=== PATIENT | male | born 1930 | race Caucasian/White ===

== ENCOUNTER 2019-11-08 10:35 | Inpatient (IN) | payer MEDICARE, MEDICAID ==
[~2019-11-08] VITALS: Ht 188 cm; Wt 79.4 kg
--- NOTE | 2019-11-08 10:43 | NUR ---
PT BIBPA FROM SNF C/O AGGRESSIVE BEHAVIOR TOWARDS THE STAFF, PT IS AAOX2, NOT IN RESPIRATORY DISTRESS, HOOKED TO MONITOR, KEPT RESTED AND COMFORTABLE, WILL CONTINUE TO MONITOR.
--- NOTE | 2019-11-08 10:50 | NUR ---
PT SEEN AND EXAMINED BY
--- NOTE | 2019-11-08 11:00 | NUR ---
ER PHLEB AT BEDSIDE FOR BLOOD DRAW.
[2019-11-08] MEDS ORDERED: GABA-532 PO (11:10)
[2019-11-08] MEDS ORDERED: DONE10TA11 PO (11:10)
[2019-11-08] MEDS ORDERED: ACET-868 PO (11:10)
[2019-11-08] MEDS ORDERED: MAGN400O6 PO (11:10)
[2019-11-08] MEDS ORDERED: PANT40TA2 PO (11:10)
[2019-11-08] MEDS ORDERED: TAMS-12 PO (11:10)
[2019-11-08] MEDS ORDERED: DIVA125C2 PO (11:10)
[2019-11-08] MEDS ORDERED: ASPI-1152 PO (11:10)
[2019-11-08] MEDS ORDERED: FERR325T23 PO (11:10)
[2019-11-08] MEDS ORDERED: BISA10SU11 RC (11:10)
[2019-11-08] MEDS ORDERED: QUET25TA PO (11:10)
[2019-11-08] MEDS ORDERED: NA P133E RC (11:10)
[2019-11-08 11:31] LABS: BASOPHILS % (AUTO) 0.5 % (0.0-2.0); EOSINOPHILS % (AUTO) 0.7 % (0.0-6.0); HEMATOCRIT 41 % (39-51); HEMOGLOBIN 13.7 g/dL (13.5-17.5); LYMPHOCYTES # (AUTO) 0.8 /CMM (0.8-4.8); LYMPHOCYTES % (AUTO) 9.7 % (20.0-44.0); MEAN CORPUSCULAR HGB CONC 33 g/dl (31.0-36.0); MEAN CORPUSCULAR VOLUME 96 fL (80-96); MONOCYTES # (AUTO) 1.3 /CMM (0.1-1.30); MONOCYTES % (AUTO) 15.9 % (2.0-12.0); NEUTROPHILS # (AUTO) 6.2 /CMM (1.8-8.9); NEUTROPHILS % (AUTO) 73.2 % (43.0-81.0); PLATELET COUNT (AUTO) 238 /CMM (150-450); RED BLOOD CELL COUNT(AUTO) 4.32 MIL/uL (4.5-6.0); WHITE BLOOD COUNT (AUTO) 8.5 K/uL (4.3-11.0)
--- NOTE | 2019-11-08 11:35 | NUR ---
URINAL GIVEN BUT UNABLE TO PROVIDE URINE SPECIMEN THIS TIME.
[2019-11-08 11:40] LABS: LYMPHOCYTES % (MANUAL) 11 % (16-48); MONOCYTES % (MANUAL) 14 % (0-11.0); NEUTROPHILS % (MANUAL) 75 (42-76)
[2019-11-08 11:46] LABS: ALANINE AMINOTRANSFERASE 21 U/L (12-78); ALBUMIN 3.1 g/dL (3.4-5.0); ALCOHOL, BLOOD < 3 mg/dL (0-0); ALKALINE PHOSPHATASE 75 U/L (46-116); ASPARTATE AMINOTRANSFERASE 14 U/L (15-37); BILIRUBIN,DIRECT 0.1 mg/dL (0.0-0.2); BILIRUBIN,TOTAL 0.3 mg/dL (0.2-1.0); CARBON DIOXIDE 28 mmol/L (21-32); CHLORIDE 102 mmol/L (98-107); CREATININE 1.1 mg/dL (0.6-1.3); GLUCOSE 113 mg/dL (74-106); POTASSIUM 3.8 mmol/L (3.5-5.1); SODIUM SERUM 133 mmol/L (136-145); TOTAL PROTEIN, SERUM 7.3 g/dL (6.4-8.2); UREA NITROGEN, BLOOD 33 mg/dL (7-18)
--- NOTE | 2019-11-08 11:47 | NUR ---
URINE SPECIMEN COLLECTED AND SENT TO LAB.
[2019-11-08 11:52] LABS: ACETAMINOPHEN 0 ug/ml (10-30); SALICYLATE 1.4 mg/dL (2.8-20.0)
[2019-11-08 11:54] LABS: APPEARANCE,URINE Clear (CLEAR); BILIRUBIN,URINE Negative (NEGATIVE); BLOOD, URINE Moderate Ery/uL (NEGATIVE); COLOR,URINE Yellow (YELLOW); KETONES,URINE Trace (NEGATIVE); LEUKOCYTE ESTERASE ,URINE Small (NEGATIVE); NITRITE, URINE Negative (NEGATIVE); PH,URINE 8.5 (5.0-8.0); PROTEIN,URINE >=300 mg/dl (NEGATIVE); UGLUCOSE Negative (NEGATIVE); UROBILINOGEN,URINE 0.2 EU/dL (0.2)
--- NOTE | 2019-11-08 12:00 | NUR ---
CALLED PERMIT TECHNICIAN ALEXANDRE BORDEN 1 HR
[2019-11-08 12:04] LABS: THYROID STIMULATING HORMONE 3.573 uIU/mL (0.358-3.74)
[2019-11-08 12:06] LABS: BACTERIA,URINE Many /HPF (None Seen); SQUAMOUS EPITHELIAL CELL,UR Few /HPF (None Seen); TRIPLE PHOSPHATE CRYSTAL,UR Few /HPF (None Seen); WBC,URINE TOO NUMEROUS TO COUN /HPF (0-3)
--- NOTE | 2019-11-08 12:35 | NUR ---
GOT GPS BED 114-A
--- NOTE | 2019-11-08 12:52 | NUR ---
SUHA DEL VALLE CRISISTEAM AT BEDSIDE FOR EVAL.
[2019-11-08] MEDS ORDERED: LEVOFLOXACIN 750 MG /D5W 150ML PIGGYBACK IV ONE (13:30)
[2019-11-08] MEDS ORDERED: ASPIRIN 81 MG TAB.CHEW PO ONE (13:30)
--- NOTE | 2019-11-08 13:41 | NUR ---
IV LINE ESTABLISHED.
[2019-11-08] MEDS ORDERED: LEVOFLOXACIN 750 MG /D5W 150ML 150 ML IV ONE (13:43)
[2019-11-08] MEDS ORDERED: ASPIRIN 81 MG TAB.CHEW ONE (13:43)
[2019-11-08] MEDS ORDERED: ACETAMINOPHEN 325 MG TABLET PO PRN ×2 (14:30)
[2019-11-08] MEDS ORDERED: ONDANSETRON HCL/PF 4 MG/2 ML VIAL IVP PRN (14:30)
[2019-11-08] MEDS ORDERED: Z GUARD REMEDY 2 OZ OINT TP PRN (14:30)
[2019-11-08] MEDS ORDERED: MAGNESIUM HYDROXIDE 30 ML UDC PO PRN ×2 (14:30)
[2019-11-08] MEDS ORDERED: MAG HYDROX/AL HYDROX/SIMETH 30 ML UDC PO PRN (14:30)
[2019-11-08] MEDS ORDERED: BISACODYL SUPP (10 MG) 10 MG/SUPP.RECT SUPP.RECT RC PRN (14:30)
[2019-11-08] MEDS ORDERED: NA PHOS,M-B/NA PHOS,DI-BA 1 EA ENEMA RC PRN (14:30)
--- NOTE | 2019-11-08 15:09 | NUR ---
REPORT GIVEN TO IVON MIRZA FOR POLA, WITH ONGOING ANTIBIOTIC IV
--- NOTE | 2019-11-08 15:30 | NUR ---
COUNTRY MANAGER NOTES RECEIVED PATIENT FROM ER VIA JUAN RAMON. PATIENT WITH SITTER. PATIENT PLACED IN ROOM ORIENTED TO ROOM. CALL LIGHT WITHIN REACH. PERIPHERAL IV INTACT PATENT. PATIENT PLACED ON TELE MONITORING READING A-FIB. PATIENT COOPERATIVE BUT ANXIOUS WHEN ASKED QUESTIONS. PATIENTS SKIN APPEARS INTACT. PATIENT REFUSED FULL SKIN ASSESSMENT. WILL CONTINUE TO MONITOR.
[2019-11-08] MEDS: GABAPENTIN 100 MG CAPSULE PO SCH (16:13)
--- NOTE | 2019-11-08 19:00 | NUR ---
BOX SHOOK PATCHER NOTES PATIENT IN BED RESTING NOS SOB OR ACUTE DISTRESS NOTED. NO CHANGES NOTED DURING SHIFT. PATIENT DOES NOT COMPLAIN OF ANY PAIN. ALL DUE MEDICATIONS ADMINISTERED. ALL NEEDS MET. WILL ENDORSE CARE TO PM SHIFT.
--- NOTE | 2019-11-08 19:15 | NUR ---
TELE/RN NOTES RECEIVED PT. LYING IN BED. PT. IS AWAKE, ALERT AND ORIENTED X2. BREATHING EVEN AND UNLABORED ON ROOM AIR. NO SOB, RESPIRATORY DISTRESS OR COMPLAINTS OF PAIN NOTED AT THIS TIME. PT. WITH EXTERNAL RN OBSERVATION PRESENT AND INTACT. CURRENT RHYTHM = AFIB HR 86. PT. WITH RIGHT WRIST 20 GAUGE IV SALINE LOCK PRESENT, PATENT AND INTACT. PT. WITH 1:1 SITTER PRESENT AT BEDSIDE. BED LOCKED AND IN LOWEST POSITION, SIDE RAILS UP X2, BED ALARM ON, CALL LIGHT WITHIN REACH, WILL CONTINUE TO MONITOR.
[2019-11-08 20:00] VITALS: BP 111/71
[2019-11-08] MEDS: TAMSULOSIN 0.4 MG CAP.SR.24H PO SCH (21:24)
[2019-11-08] MEDS: DIVALPROEX SODIUM 125 MG CAP.SPRINK PO SCH (21:25)
[2019-11-08] MEDS: HYDROCODONE/APAP 5/325MG 1 EACH TABLET PO PRN (22:06)
[2019-11-09] VITALS: BP 128/61
[2019-11-09] MEDS: HYDROCODONE/APAP 5/325MG 1 EACH TABLET PO PRN ×3 (03:31→21:41)
[2019-11-09 05:28] VITALS: BP 119/82
[2019-11-09 06:38] LABS: BASOPHILS % (AUTO) 0.2 % (0.0-2.0); EOSINOPHILS % (AUTO) 1.3 % (0.0-6.0); HEMATOCRIT 36 % (39-51); HEMOGLOBIN 12.2 g/dL (13.5-17.5); LYMPHOCYTES # (AUTO) 0.8 /CMM (0.8-4.8); LYMPHOCYTES % (AUTO) 11.2 % (20.0-44.0); MEAN CORPUSCULAR HGB CONC 34 g/dl (31.0-36.0); MEAN CORPUSCULAR VOLUME 95 fL (80-96); MONOCYTES # (AUTO) 1.2 /CMM (0.1-1.30); MONOCYTES % (AUTO) 16.1 % (2.0-12.0); NEUTROPHILS # (AUTO) 5.2 /CMM (1.8-8.9); NEUTROPHILS % (AUTO) 71.2 % (43.0-81.0); PLATELET COUNT (AUTO) 216 /CMM (150-450); RED BLOOD CELL COUNT(AUTO) 3.84 MIL/uL (4.5-6.0); WHITE BLOOD COUNT (AUTO) 7.4 K/uL (4.3-11.0)
--- NOTE | 2019-11-09 06:58 | NUR ---
TELE/RN NOTES PT. IS LYING IN BED. PT. IS AWAKE, ALERT AND ORIENTED X2. BREATHING EVEN AND UNLABORED ON ROOM AIR. NO SOB, RESPIRATORY DISTRESS OR COMPLAINTS OF PAIN NOTED AT THIS TIME. PT. WITH EXTERNAL BOAT CREW DECK HAND PRESENT AND INTACT. CURRENT RHYTHM = AFIB HR 84. PT. WITH RIGHT WRIST 20 GAUGE IV SALINE LOCK PRESENT, PATENT AND INTACT. PT. WITH 1:1 SITTER PRESENT AT BEDSIDE. ALL PT. NEEDS MET. BED LOCKED AND IN LOWEST POSITION, SIDE RAILS UP X2, BED ALARM ON, CALL LIGHT WITHIN REACH, WILL ENDORSE TO DAYSMNFT NURSE FOR CONTINUITY OF CARE.
[2019-11-09 07:00] LABS: CALCIUM, SERUM 8.2 mg/dL (8.5-10.1); CREATININE 1.1 mg/dL (0.6-1.3); PHOSPHORUS 2.5 mg/dL (2.5-4.9); POTASSIUM 4.4 mmol/L (3.5-5.1)
--- NOTE | 2019-11-09 07:41 | NUR ---
WATER[place]ELON HARVESTING SUPERVISOR OPENING NOTES PATIENT RECEIVED IN BED ASLEEP. PATIENT ON ROOM AIR BREATHING EVENLY WITH NO SIGNS OF DISTRESS NOTES. NO SIGNS OF PAIN SUCH FACIAL GRIMACING, GUARDING OR MOANING NOTED. PATIENT ON EXTERNAL CARDIAC MONITORING WITH A CURRENT READING OF A-FIB CONTROLLED IN THE 70S. PATIENT HAS A SL ON R WRIST GAUGE # 20. NO SIGNS OF INFILTRATION NOTES AT THE SITE. SITTER PRESENT AT BED SITE. SAFETY PRECAUTIONS IN PLACE: BED IN LOW POSITION AND LOCKED, RAILS UP X 2, CALL LIGHT WITHIN REACH. WILL CONTINUE TO MONITOR THE PATIENT.
[2019-11-09 08:09] VITALS: BP 107/60
[2019-11-09] MEDS: PANTOPRAZOLE 40 MG TABLET.DR PO SCH (08:17)
[2019-11-09] MEDS: GABAPENTIN 100 MG CAPSULE PO SCH ×3 (08:17→17:06)
[2019-11-09] MEDS: DIVALPROEX SODIUM 125 MG CAP.SPRINK PO SCH ×2 (08:18→21:33)
[2019-11-09] MEDS: DONEPEZIL 5 MG TABLET PO SCH (08:18)
[2019-11-09] MEDS: FERROUS SULFATE (325 MG) 325 MG/TAB TABLET PO SCH (08:19)
[2019-11-09] MEDS ORDERED: ASPIRIN EC 81 MG TABLET.DR PO SCH (09:00)
[2019-11-09] MEDS ORDERED: ASPIRIN 325 MG TABLET PO SCH (09:00)
--- NOTE | 2019-11-09 09:38 | NUR ---
WOUND CARE CONSULT: PT PRESENTS WITH REDNESS TO NOSE AND SACRAL SCARRING, PRESENT ON ADMISSION. RECOMMENDATIONS MADE FOR SKIN PROTECTION. DISCUSSED WITH NURSING STAFF. DEFER TO MD FOR REDNESS TO NOSE. CURRENT WAQAS SCORE IS 15. WILL SEE PRN. [place] IN AGREEMENT WITH PLAN OF CARE. Addendum: 11/09/19 at 0940 by YOAV SANDS WNDNU Amended: Links added.
[2019-11-09] MEDS: ASPIRIN EC 81 MG TABLET.DR PO SCH (09:40)
[2019-11-09] MEDS: QUETIAPINE FUMARATE 25 MG TABLET PO SCH ×2 (11:22→17:06)
[2019-11-09 12:00] VITALS: BP 107/54
[2019-11-09] MEDS: LEVOFLOXACIN 500 MG /D5W 100ML 500 MG in PREMIX 1 EA IV SCH (14:01)
--- NOTE | 2019-11-09 19:11 | NUR ---
M/S RN NOTES PATIENT AWAKE LYING IN BED. SITTER AT BEDSIDE. PATIENT COOPERATIVE AT THIS TIME. IN NO RESPIRATORY DISTRESS, NO C/O PAIN AT THIS TIME. IV ACCESS SITE INTACT AND PATENT. PATIENT'S NEEDS ATTENDED, BED ON LOWEST LOCKED POSITION, CALL LIGHT WITHIN REACH. WILL ENDORSE TO ONCOMING NURSE.
--- NOTE | 2019-11-09 19:20 | NUR ---
RN medsurg opening notes Received Pt from morning nurse. Pt is alert and orientedX2. Pt is resting in bed comfortably with a sitter at bedside. Respiration is normal in room air. No SOB. No S/S of distress noted. IV sites at R wrist # 20 is clean, intact, patent and SL. Safety precautions is maintained. Bed at low position, brakes locked, side rails upX3 and call light is within reach. Will continue to monitor.
[2019-11-09 19:31] VITALS: BP 100/60
[2019-11-09 20:00] VITALS: BP 100/60
[2019-11-09] MEDS: TAMSULOSIN 0.4 MG CAP.SR.24H PO SCH (21:33)
--- NOTE | 2019-11-09 21:43 | NUR ---
RN medsurg notes Pt is complaining of pain and requesting pain meds. Administered norco 5-325/1 tab/po as ordered for pain per Pt' request. VS is stable. sitter at the bedside. Safety precautions is maintained. Will continue to monitor.
[2019-11-10] MEDS: HYDROCODONE/APAP 5/325MG 1 EACH TABLET PO PRN ×2 (04:22→16:24)
--- NOTE | 2019-11-10 06:50 | NUR ---
IVON medsurcaesar closing notes Pt is resting in bed comfortably. Respiration is normal in room air. No SOB. No S/S of distress noted. IV sites at R wrist # 20 is clean, intact, patent and SL. Routine meds were given as ordered. Skin care provided. Kept Pt clean, dry, warm and comfortable. All needs met and attended. Safety precautions is maintained. Bed at low position, brakes locked, side rails upX3 and call light is within reach. Will endorse to morning nurse for POLA. Addendum: 11/10/19 at 0736 by JAMIL HAMPTON RN Sitter at the bedside.
[2019-11-10 06:55] LABS: BASOPHILS % (AUTO) 0.2 % (0.0-2.0); EOSINOPHILS % (AUTO) 1.5 % (0.0-6.0); HEMATOCRIT 36 % (39-51); HEMOGLOBIN 12.1 g/dL (13.5-17.5); LYMPHOCYTES # (AUTO) 0.7 /CMM (0.8-4.8); LYMPHOCYTES % (AUTO) 10.2 % (20.0-44.0); MEAN CORPUSCULAR HGB CONC 33 g/dl (31.0-36.0); MEAN CORPUSCULAR VOLUME 95 fL (80-96); MONOCYTES % (AUTO) 14.4 % (2.0-12.0); NEUTROPHILS # (AUTO) 5.1 /CMM (1.8-8.9); NEUTROPHILS % (AUTO) 73.7 % (43.0-81.0); PLATELET COUNT (AUTO) 209 /CMM (150-450); RED BLOOD CELL COUNT(AUTO) 3.83 MIL/uL (4.5-6.0); WHITE BLOOD COUNT (AUTO) 6.9 K/uL (4.3-11.0)
[2019-11-10 07:25] LABS: CALCIUM, SERUM 8.5 mg/dL (8.5-10.1); CREATININE 1.2 mg/dL (0.6-1.3); PHOSPHORUS 2.9 mg/dL (2.5-4.9); POTASSIUM 4.4 mmol/L (3.5-5.1)
--- NOTE | 2019-11-10 07:40 | NUR ---
MS RN OPENING NOTE PATIENT IN BED RESTING COMFORTABLY. PATIENT IN NO ACUTE DISTRESS. NO SOB NOTED. PATIENT BREATHING IS EVEN AND UNLABORED. PATIENT MAINTAINED ON A 1:1 SITTER. PATIENT BED IS LOCKED AND IN LOWEST POSITION. CALL LIGHT WITHIN REACH. WILL CONTINUE TO MONITOR.
[2019-11-10] MEDS: PANTOPRAZOLE 40 MG TABLET.DR PO SCH (07:56)
[2019-11-10 08:00] VITALS: BP 102/60
--- NOTE | 2019-11-10 08:00 | NUR ---
MS RN NOTE PATIENT IN NO ACUTE DISTRESS. NO SOB NOTED. PATIENT BREATHING IS EVEN AND UNLABORED. PATIENT BED IS LOCKED AND IN LOWEST POSITION. CALL LIGHT WITHIN REACH. ENDORSED CARE TO AM NURSE DADA FOR POLA.
[2019-11-10] MEDS: DONEPEZIL 5 MG TABLET PO SCH (09:41)
[2019-11-10] MEDS: GABAPENTIN 100 MG CAPSULE PO SCH ×3 (09:42→16:15)
[2019-11-10] MEDS: FERROUS SULFATE (325 MG) 325 MG/TAB TABLET PO SCH (09:42)
[2019-11-10] MEDS: DIVALPROEX SODIUM 125 MG CAP.SPRINK PO SCH ×2 (09:42→22:03)
[2019-11-10] MEDS: ASPIRIN EC 81 MG TABLET.DR PO SCH (09:42)
[2019-11-10] MEDS: QUETIAPINE FUMARATE 25 MG TABLET PO SCH ×2 (09:42→16:15)
--- NOTE | 2019-11-10 09:48 | NUR ---
CARE TAKEN OVER, IN BED, ALERT, ORIENTED, AND APPROPRIATE. IVF NOT RUNNING AT THIS TIME, NEED NEW HL
--- NOTE | 2019-11-10 12:36 | NUR ---
will be getting abx ivkam, SHAYNE, adamantly refused a new HL, regardless the explanations why he needs it, " I said no, will call attending to see whether it can be changed to po. Other than that, compliant with care
[2019-11-10] MEDS: LEVOFLOXACIN 500 MG /D5W 100ML 500 MG in PREMIX 1 EA IV SCH (13:47)
--- NOTE | 2019-11-10 14:27 | NUR ---
re-approached for new HL insertion, agreeable. New HL on LFA, continue with Levaquin ivpb
[2019-11-10 16:00] VITALS: BP 110/74
--- NOTE | 2019-11-10 17:28 | NUR ---
stated " by mistake hit his nose, which is swollen, red, and painful, asked for pain med, one po NORCO given for pain at 1630, with relief
[2019-11-10 20:00] VITALS: BP 106/50
[2019-11-10] MEDS: TAMSULOSIN 0.4 MG CAP.SR.24H PO SCH (22:03)
[2019-11-11] MEDS: HYDROCODONE/APAP 5/325MG 1 EACH TABLET PO PRN (03:17)
--- NOTE | 2019-11-11 06:28 | NUR ---
PT REFUSED AM LAB WORK/ BLOOD DRAW FUNERAL SERVICE MANAGER INFORMED ME THAT PATIENT REFUSED TO HAVE AM LABS DRAWN.
[2019-11-11] MEDS: PANTOPRAZOLE 40 MG TABLET.DR PO SCH (06:37)
--- NOTE | 2019-11-11 06:45 | NUR ---
RN PM CLOSING NOTE. PATIENT IN BED WITH EYES CLOSED. PATIENT ON ROOM AIR BREATHING EVENLY WITH NO SIGNS OF DISTRESS NOTED. NO SIGNS OF PAIN SUCH FACIAL GRIMACING, GUARDING OR MOANING NOTED. PATIENT HAS A SL ON R WRIST GAUGE # 20. NO SIGNS OF INFILTRATION NOTES AT THIS SITE. DAGO JERNIGAN CNA PRESENT AT BED SIDE. SAFETY PRECAUTIONS IN PLACE: BED IN LOW POSITION AND LOCKED.
[2019-11-11 08:00] VITALS: BP 110/66
--- NOTE | 2019-11-11 08:15 | NUR ---
RN NOTES RECEIVED PATIENT RESTING COMFORTABLY IN BED AT THIS TIME. HE IS AOX3, VERBAL, AND ON BEDREST. PT IS ON 5250 HOLD FOR NO PLAN OF SELF CARE UNTIL 11/24/2019. PT HAS AN ABSCESS ON TIP OF NOSE, SWOLLEN AND PAINFUL TO TOUCH. PT IS ON CARDIAC DIET, TOLERATING WELL. IV SITE 20G LAC IS PATENT AND INTACT. SAFETY MEASURES HAVE BEEN IMPLEMENTED, CALL LIGHT IS WITHIN REACH, BED IS IN LOWEST AND LOCKED POSITION, SIDE RAILS UP X2, WILL CONTINUE TO MONITOR FOR ANY CHANGES.
[2019-11-11] MEDS: GABAPENTIN 100 MG CAPSULE PO SCH ×2 (09:13→12:16)
[2019-11-11] MEDS: QUETIAPINE FUMARATE 25 MG TABLET PO SCH (09:13)
[2019-11-11] MEDS: DIVALPROEX SODIUM 125 MG CAP.SPRINK PO SCH (09:13)
[2019-11-11] MEDS: ASPIRIN EC 81 MG TABLET.DR PO SCH (09:13)
[2019-11-11] MEDS: FERROUS SULFATE (325 MG) 325 MG/TAB TABLET PO SCH (09:13)
[2019-11-11] MEDS: DONEPEZIL 5 MG TABLET PO SCH (09:13)
[2019-11-11] MEDS ORDERED: LEVO500T75 PO (10:59)
--- NOTE | 2019-11-11 15:00 | NUR ---
RN NOTES PATIENT HAS BEEN DISCHARGED. HE WAS TRANSFERRED TO GPS AT [facility] VIA WHEELCHAIR. TRANSFER REPORT WAS GIVEN TO ALFREDO DEL VALLE. EXIT CARE WAS UTILIZED DURING THE DC PROCESS, BELONGINGS LIST WAS CHECKED OFF, IV SITE WAS REMOVED. MED RECONCILIATION WAS DONE.
[2019-11-11] MEDS ORDERED: MAG30ORA PO (15:07)
== END 2019-11-11 14:42 | DRG 689 ==
LOC: ER 10:38 → TELE 14:53 → MED 11-09 11:30
PROVIDERS: ADMIT Internal Medicine; ATTEND Internal Medicine
DX: N39.0 Urinary tract infection, site not specified (principal); I21.A1 Myocardial infarction type 2; E87.1 Hypo-osmolality and hyponatremia; F02.81 Dementia in other diseases classified elsewhere, unspecified severity, with behavioral disturbance; E11.9 Type 2 diabetes mellitus without complications; J44.9 Chronic obstructive pulmonary disease, unspecified; Z88.0 Allergy status to penicillin; Z79.82 Long term (current) use of aspirin; Z79.899 Other long term (current) drug therapy; E78.5 Hyperlipidemia, unspecified; D63.8 Anemia in other chronic diseases classified elsewhere; E86.1 Hypovolemia; F20.9 Schizophrenia, unspecified; I48.91 Unspecified atrial fibrillation; G30.9 Alzheimer's disease, unspecified; G62.9 Polyneuropathy, unspecified; I25.10 Atherosclerotic heart disease of native coronary artery without angina pectoris; K21.9 Gastro-esophageal reflux disease without esophagitis; N40.0 Benign prostatic hyperplasia without lower urinary tract symptoms; Z87.891 Personal history of nicotine dependence; Z87.01 Personal history of pneumonia (recurrent); B96.89 Other specified bacterial agents as the cause of diseases classified elsewhere; I12.9 Hypertensive chronic kidney disease with stage 1 through stage 4 chronic kidney disease, or unspecified chronic kidney disease; N18.9 Chronic kidney disease, unspecified; I73.9 Peripheral vascular disease, unspecified
CPT/HCPCS: 36415; 71045-TC; 80048-TC; 80061-TC; 80076-TC; 80305; 81000-TC; 83735-TC; 84100-TC; 84443-TC; 84484-TC; 85025-TC; 87081-TC; 87086-TC; 87186-TC; 93307-TC; 94799-TC; A4216; G0378; G0480; J1956; J7050

== ENCOUNTER 2019-11-11 14:54 | Inpatient (IN) | payer MEDICARE, OTHER ==
[~2019-11-11] VITALS: Ht 188 cm; Wt 78.9 kg
[~2019-11-11 14:54] MED LIST: ACET-868 PO; ASPI-1152 PO; BISA10SU11 RC; DIVA125C2 PO; DONE10TA11 PO; FERR325T23 PO; GABA-532 PO; LEVO500T75 PO; MAGN400O6 PO; NA P133E RC; PANT40TA2 PO; QUET25TA PO; TAMS-12 PO
[2019-11-11] MEDS ORDERED: MAG30ORA PO (15:07)
[2019-11-11 15:13] VITALS: BP 112/58
[2019-11-11] MEDS ORDERED: MAG HYDROX/AL HYDROX/SIMETH 30 ML UDC PO PRN (15:30)
[2019-11-11] MEDS ORDERED: MAGNESIUM HYDROXIDE 30 ML UDC PO PRN (15:30)
[2019-11-11] MEDS ORDERED: BLOOD SUGAR DIAGNOSTIC 1 EACH STRIP IN ONE (15:30)
[2019-11-11] MEDS ORDERED: ACETAMINOPHEN 325 MG TABLET PO PRN (15:30)
--- NOTE | 2019-11-11 15:39 | NUR ---
GPS RN NOTE: PATIENT IS A 89 YEAR OLD MALE, BROUGHT IN TO [facility] FROM [facility] FOLLOWING NSTEMI/UTI TREATMENT. PATIENT ADMITTED ON A 5250 HOLD FOR GRAVELY DISABLED. PATIENT ORIGINALLY COMBATIVE AND AGGRESSIVE WITH STAFF AT THE FACILITY HE WAS STAYING IN. ACCORDING TO 5250 PATIENT IS CONFUSED WITH NO PLANS FOR SELF CARE. UPON FACE TO FACE ASSESSMENT PATIENT IS AOX1 TO SELF. HE IS UNAWARE OF PLACE OR THE SITUATION THAT HAS BROUGHT HIM TO THE HOSPITAL. WHEN ASKED WHY HE IS HERE HE BELIEVES IT IS BECAUSE OF A SORE ON HIS NOSE. PATIENT DENIES SI/HI AND VAH. PATIENT IS GUARDED BUT OTHERWISE CALM AND COOPERATIVE. CAME IN WITH HOSPTIAL GOWN, CLOTHES HE BROUGHT IN SMELL OF URINE. UNABLE TO VOCALIZE PLAN FOR SELF CARE. DR. WHITAKER AND DR. CORTES NOTIFIED OF ADMISSION AND ORDERS DOCUMENTED. PATIENTS RIGHTS HANDBOOK AND GUIDE TO PRESCRIPTIONS GIVEN. SKIN IS INTACT OUTSIDE OF SORE ON TIP OF NOSE. VS WNL.
--- NOTE | 2019-11-11 15:59 | NUR ---
Dr. Colon covering for Dr. Valenzuela made aware of the admission and ordered to put the standing orders of Dr. Valenzuela.
[2019-11-11 16:00] VITALS: BP 148/78
[2019-11-11] MEDS ORDERED: ZOLPIDEM TARTRATE 5 MG TABLET PO PRN (16:00)
[2019-11-11] MEDS ORDERED: LORAZEPAM 1 MG TABLET PO PRN (16:00)
--- NOTE | 2019-11-11 16:33 | NUR ---
DR. HILL NOTIFIED OF ADMISSION AND REQUESTED TO COMPLETE MED RECONCILIATION
[2019-11-11 20:42] VITALS: BP_SYST 106; BP_SYST 136; BP_DIAS 65; BP_DIAS 87
--- NOTE | 2019-11-11 21:11 | NUR ---
GPS/RN NOTE: PAGED DR. SANDRA CRUZ FOR MED RECON, PATIENT ADMITTED TODAY DURING THE DAY SHIFT.
[2019-11-12 08:00] VITALS: BP 117/69
[2019-11-12 16:00] VITALS: BP 119/68
[2019-11-12] MEDS ORDERED: MAG HYDROX/AL HYDROX/SIMETH 30 ML UDC PO PRN (16:40)
[2019-11-12] MEDS ORDERED: NA PHOS,M-B/NA PHOS,DI-BA 1 EA ENEMA RC PRN (16:40)
[2019-11-12] MEDS ORDERED: MAGNESIUM HYDROXIDE 30 ML UDC PO PRN (16:40)
[2019-11-12] MEDS ORDERED: ONDANSETRON HCL/PF 4 MG/2 ML VIAL IVP PRN (16:40)
[2019-11-12] MEDS ORDERED: Z GUARD REMEDY 2 OZ OINT TP PRN (16:40)
[2019-11-12] MEDS ORDERED: BISACODYL SUPP (10 MG) 10 MG/SUPP.RECT SUPP.RECT RC PRN (16:40)
[2019-11-12] MEDS ORDERED: HYDROCODONE/APAP 5/325MG 1 EACH TABLET PO PRN (16:40)
[2019-11-12] MEDS ORDERED: LEVOFLOXACIN 500 MG /D5W 100ML 500 MG in PREMIX 1 EA IV SCH (16:40)
[2019-11-12] MEDS ORDERED: ACETAMINOPHEN 325 MG TABLET PO PRN (16:40)
[2019-11-12] MEDS: LEVOFLOXACIN (500MG) 500 MG TABLET PO SCH (16:51)
[2019-11-12] MEDS: GABAPENTIN 100 MG CAPSULE PO SCH (16:52)
[2019-11-12] MEDS ORDERED: ONDANSETRON 4 MG TAB.RAPDIS PO PRN (17:00)
[2019-11-12 20:35] VITALS: BP 130/47
[2019-11-12] MEDS: QUETIAPINE FUMARATE 100 MG TABLET PO SCH (20:59)
[2019-11-12] MEDS: DIVALPROEX SODIUM 125 MG CAP.SPRINK PO SCH (20:59)
[2019-11-12] MEDS: TAMSULOSIN 0.4 MG CAP.SR.24H PO SCH (21:01)
[2019-11-13 08:00] VITALS: BP 100/59
[2019-11-13] MEDS: ASPIRIN EC 81 MG TABLET.DR PO SCH (08:40)
[2019-11-13] MEDS: GABAPENTIN 100 MG CAPSULE PO SCH ×3 (08:40→16:31)
[2019-11-13] MEDS: DONEPEZIL 5 MG TABLET PO SCH (08:40)
[2019-11-13] MEDS: QUETIAPINE FUMARATE 100 MG TABLET PO SCH ×2 (08:40→20:56)
[2019-11-13] MEDS: PANTOPRAZOLE 40 MG TABLET.DR PO SCH (08:40)
[2019-11-13] MEDS: DIVALPROEX SODIUM 125 MG CAP.SPRINK PO SCH (08:40)
[2019-11-13] MEDS: FERROUS SULFATE (325 MG) 325 MG/TAB TABLET PO SCH (08:41)
[2019-11-13] MEDS: DIVALPROEX SODIUM 250 MG TABLET.DR PO SCH ×4 (09:00→16:31)
--- NOTE | 2019-11-13 09:45 | NUR ---
PUBLIC GUARDIAN: ROBSON contacted [facility] Office of Public Guardian Jaz Soliz [phone] and was unable to leave a voicemail due to messaging system not accepting new messages and her being out of the office until 11/20/2019.
--- NOTE | 2019-11-13 09:51 | NUR ---
PUBLIC GUARDIAN: ROBSON contacted [facility] Office of Public Guardian [phone] and spoke to Duty worker Carly Gutierrez for Unit [address] who stated pt is on a Probate Conservatorship and not LPS. Per Harwood Worker Public Guardian can give consent to psychotropic medications only related to Dementia and not schizophrenia. [place]wood Worker will fax Probate Conservatorship paperwork to place in pts chart.
--- NOTE | 2019-11-13 10:01 | NUR ---
RN NOTE PT HAS DUPLICATE ORDER OF DEPAKOTE. DR WHITAKER PRESENT IN THE UNIT. ORDER MODIFIED.
--- NOTE | 2019-11-13 10:27 | NUR ---
FACILITY CONTACT: SW contacted [facility] ([facility]) [address] [place], [address] and spoke with RISA, hospital unit coordinator who stated pt is able to return to the facility once he is stable for discharge.
[2019-11-13] MEDS: LEVOFLOXACIN (500MG) 500 MG TABLET PO SCH (14:14)
--- NOTE | 2019-11-13 14:58 | NUR ---
INDIVIDUAL MEETING: Pts 5250 hold was not upheld, SW assisted RN with having pt sign Voluntary.
--- NOTE | 2019-11-13 15:27 | NUR ---
FACILITY CONTACT: SW contacted [facility] ([facility]) [place], [address] and spoke with Dinesh, social worker health services who provided SW with some collateral information. Per Dinesh, pt has been at that facility since 10/18/18 and was sent to [facility] from 05/04/19-05/08/19 and readmitted to their facility on 05/08/19. Per Dinesh, pt is under public guardianship and does not have any family. No other additional information was provided as Dinesh said the facility does not have any other information and pt is a poor historian.
--- NOTE | 2019-11-13 15:35 | NUR ---
Group Note: SW encouraged pt to participate in group therapy on 11/14/19 at 2pm to discuss "social supports." Pt is isolative and stays in his room with a sheet over his head. The pt stated that his nose has been bothering him and therefore he does not want to come out of his room. Pt states that he has a public guardian that makes his decisions for him.
--- NOTE | 2019-11-13 15:53 | NUR ---
INITIAL DISCHARGE PLAN: Pt will return to SNF. ROBSON contacted [facility] [address] [place], [address] and spoke with RISA, weatherization coordinator who stated pt is able to return to the facility once he is stable for discharge. ROBSON will help form a safe and proper discharge in collaboration with .
[2019-11-13 16:00] VITALS: BP 114/58
[2019-11-13 20:00] VITALS: BP 93/61
[2019-11-13] MEDS: TAMSULOSIN 0.4 MG CAP.SR.24H PO SCH (21:33)
[2019-11-14 08:00] VITALS: BP 101/62
[2019-11-14] MEDS: DIVALPROEX SODIUM 250 MG TABLET.DR PO SCH ×3 (08:52→17:10)
[2019-11-14] MEDS: ASPIRIN EC 81 MG TABLET.DR PO SCH (08:52)
[2019-11-14] MEDS: GABAPENTIN 100 MG CAPSULE PO SCH ×3 (08:52→17:10)
[2019-11-14] MEDS: PANTOPRAZOLE 40 MG TABLET.DR PO SCH (08:52)
[2019-11-14] MEDS: FERROUS SULFATE (325 MG) 325 MG/TAB TABLET PO SCH (08:52)
[2019-11-14] MEDS: QUETIAPINE FUMARATE 100 MG TABLET PO SCH ×2 (08:52→20:46)
[2019-11-14] MEDS: DONEPEZIL 5 MG TABLET PO SCH (08:53)
--- NOTE | 2019-11-14 10:14 | NUR ---
WOUND CARE CONSULT: PT PRESENTS WITH CRUSTING TO TIP OF NOSE, PRESENT ON ADMISSION WHICH IS NOW BROWN/BLACK IN COLOR. RECOMMEND SURGICAL CONSULT. DISCUSSED WITH DR CASTRO. DR BAILEY NOTIFIED OF SURGICAL CONSULT REQUEST. DEFER TO MD/SURGEON. WILL SEE PRN. Addendum: 11/14/19 at 1015 by YOAV SANDS WNDNU Amended: Links added.
[2019-11-14] MEDS: LEVOFLOXACIN (500MG) 500 MG TABLET PO SCH (14:03)
--- NOTE | 2019-11-14 14:59 | NUR ---
GROUP NOTE: SW encouraged pt to participate in group therapy on this present day to discuss "discharge planning." Pt refused to get up from bed stating he was in a lot of pain. Pt was lethargic and unable to participate in group therapy. SW attempted to provide intervention but pt was somnolent and drowsy from his pain medication.
[2019-11-14 16:00] VITALS: BP 100/57
[2019-11-14] MEDS: VALACYCLOVIR HCL 500 MG TABLET PO SCH (17:10)
[2019-11-14 20:00] VITALS: BP 105/66
--- NOTE | 2019-11-14 20:17 | NUR ---
GPS RN NOTE CALLED PROGRAM MANAGEMENT SPECIALIST PHARM[facility]Y TO VERIFY NEW ORDER OF BACTROBAN OINTMENT. WILL FOLLOW UP AGAIN.
[2019-11-14 20:24] VITALS: BP 105/66
--- NOTE | 2019-11-14 20:33 | NUR ---
GPS RN NOTE PHARMACY VERIFIED BACTROBAN ORDER, NOTIFIED [facility]G WATER RESOURCE ENGINEERING SPECIALIST TO PROVIDE THE MEDICINE SINCE IN HOUSE PHARMACY IS CLOSED .
[2019-11-14] MEDS: TAMSULOSIN 0.4 MG CAP.SR.24H PO SCH (21:22)
[2019-11-14] MEDS ORDERED: MUPIROCIN OINT 2% 22 GM TUBE ONE (21:59)
[2019-11-14] MEDS: MUPIROCIN OINT 2% 22 GM TUBE SCH (22:09)
--- NOTE | 2019-11-15 00:22 | NUR ---
GPS RN NOTE PATIENT HAS BEEN SLEEPING WELL SINCE 2014, GOT OUT OF BED X2 TO USE THE URINAL & WENT BACK TO SLEEP. NO BEHAVIOR EPISODE NOTED. WILL CONTINUE TO MONITOR FOR NEED OF ANY PRN MEDICINES. CONTINUING Q15 MINS. SAFETY CHECKS.
[2019-11-15 08:00] VITALS: BP 101/55
[2019-11-15] MEDS: DONEPEZIL 5 MG TABLET PO SCH (08:13)
[2019-11-15] MEDS: ASPIRIN EC 81 MG TABLET.DR PO SCH (08:13)
[2019-11-15] MEDS: PANTOPRAZOLE 40 MG TABLET.DR PO SCH (08:13)
[2019-11-15] MEDS: GABAPENTIN 100 MG CAPSULE PO SCH ×3 (08:13→17:15)
[2019-11-15] MEDS: VALACYCLOVIR HCL 500 MG TABLET PO SCH ×3 (08:13→17:15)
[2019-11-15] MEDS: DIVALPROEX SODIUM 250 MG TABLET.DR PO SCH ×3 (08:13→17:15)
[2019-11-15] MEDS: FERROUS SULFATE (325 MG) 325 MG/TAB TABLET PO SCH (08:13)
[2019-11-15] MEDS: QUETIAPINE FUMARATE 100 MG TABLET PO SCH ×2 (08:15→21:05)
[2019-11-15] MEDS: MUPIROCIN OINT 2% 22 GM TUBE SCH ×2 (08:53→21:06)
[2019-11-15] MEDS: LEVOFLOXACIN (500MG) 500 MG TABLET PO SCH (13:17)
[2019-11-15 16:00] VITALS: BP 100/56
[2019-11-15] MEDS ORDERED: MENTHOL/CETYLPYRD (CEPACOL) 1 LOZ LOZENGE PO PRN (18:00)
[2019-11-15 20:00] VITALS: BP 99/58
[2019-11-15 20:50] VITALS: BP 100/61
[2019-11-15 20:54] VITALS: BP 99/58
[2019-11-15] MEDS: TAMSULOSIN 0.4 MG CAP.SR.24H PO SCH (21:06)
--- NOTE | 2019-11-16 02:00 | NUR ---
GPS RN NOTE PATIENT IS SLEEPING AT THIS TIME. NO CHANGES NOTED. KEPT CLEAN & DRY. WOKE UP X 2 TO USE THE URINAL IN HIS BED & FELL ASLEEP AGAIN. KEEPS HIS FACE COVERED WITH SHEET MOST OF THE TIME. WILL CONTINUE TO MONITOR Q15MIN FOR SAFETY & COMFORT.
[2019-11-16 08:00] VITALS: BP 122/94
[2019-11-16] MEDS: VALACYCLOVIR HCL 500 MG TABLET PO SCH ×3 (08:37→16:25)
[2019-11-16] MEDS: MUPIROCIN OINT 2% 22 GM TUBE SCH ×2 (08:38→20:50)
[2019-11-16] MEDS: GABAPENTIN 100 MG CAPSULE PO SCH ×3 (08:38→16:25)
[2019-11-16] MEDS: DONEPEZIL 5 MG TABLET PO SCH (08:38)
[2019-11-16] MEDS: QUETIAPINE FUMARATE 100 MG TABLET PO SCH ×2 (08:38→20:49)
[2019-11-16] MEDS: ASPIRIN EC 81 MG TABLET.DR PO SCH (08:38)
[2019-11-16] MEDS: PANTOPRAZOLE 40 MG TABLET.DR PO SCH (08:38)
[2019-11-16] MEDS: FERROUS SULFATE (325 MG) 325 MG/TAB TABLET PO SCH (08:38)
[2019-11-16] MEDS: DIVALPROEX SODIUM 250 MG TABLET.DR PO SCH ×3 (08:38→16:25)
[2019-11-16] MEDS: LEVOFLOXACIN (500MG) 500 MG TABLET PO SCH (13:43)
--- NOTE | 2019-11-16 14:05 | NUR ---
PATIENT HAD A VERBAL OUTBURST TOWARDS HIS NEIGHBOR. I WAS HELPING PATIENT INTO HIS WHEELCHAIR, HE SAID 'F YOU" TO HIS NEIGHBOR AND TRIED TO GO NEAR HIM WITH THE WHEELCHAIR. I HAD TO DE-ESCALATE THE SITUATION AND REMOVE HIM FROM THE ROOM TO REDUCE STIMULI. PATIENT APOLOGIZED AND IS NOW IN THE DINING ROOM.
--- NOTE | 2019-11-16 15:57 | NUR ---
PUBLIC GUARDIAN: ROBSON contacted [facility] Office of Public Guardian Jaz Ho [phone] and informed her that pt will be discharged tomorrow back to [facility]. Jaz agreed with discharge plan.
[2019-11-16 16:00] VITALS: BP 108/58
[2019-11-16 20:00] VITALS: BP 95/54
[2019-11-16 20:32] VITALS: BP 95/54
[2019-11-16] MEDS: TAMSULOSIN 0.4 MG CAP.SR.24H PO SCH (21:12)
[2019-11-17 08:00] VITALS: BP 115/50
[2019-11-17] MEDS: FERROUS SULFATE (325 MG) 325 MG/TAB TABLET PO SCH (08:23)
[2019-11-17] MEDS: ASPIRIN EC 81 MG TABLET.DR PO SCH (08:23)
[2019-11-17] MEDS: DONEPEZIL 5 MG TABLET PO SCH (08:23)
[2019-11-17] MEDS: PANTOPRAZOLE 40 MG TABLET.DR PO SCH (08:23)
[2019-11-17] MEDS: DIVALPROEX SODIUM 250 MG TABLET.DR PO SCH ×2 (08:23→12:17)
[2019-11-17] MEDS: GABAPENTIN 100 MG CAPSULE PO SCH ×2 (08:23→12:17)
[2019-11-17] MEDS: MUPIROCIN OINT 2% 22 GM TUBE SCH (08:25)
[2019-11-17] MEDS: QUETIAPINE FUMARATE 100 MG TABLET PO SCH (08:27)
[2019-11-17] MEDS: VALACYCLOVIR HCL 500 MG TABLET PO SCH ×2 (08:31→12:17)
--- NOTE | 2019-11-17 09:34 | NUR ---
DISCHARGE NOTE: Pt discharging at 2:00pm via [facility] to [facility] ([facility]) [address] [place], [address] . Pts Public Guardian Jaz Soliz [phone] has been notified and agreed with discharge. Pts mood is euthymic with congruent affect. Pt denied visual/auditory hallucinations and denied suicidal/homicidal ideation. Pt will be under the care of Automotive Fleet Supervisor: Dr Kumari Address: [address] [place] [address] and Psychiatrist: Dr. Valenzuela [address] [address] [phone]. The multidisciplinary exitcare form was done, printed, signed, and given to the patient.
--- NOTE | 2019-11-17 10:38 | NUR ---
DR. WHITAKER GAVE AN ORDER TO D/C HOLD AND D/C TO [facility] AND TO FOLLOW UP WITH PSYCH AND MEDICAL DOCTORS. DR. CASTRO MADE AWARE OF THE DISCHARGED AND RECONCILED THE MEDS. PT. WITHOUT DISTRESS, DENIES SUICIDAL AND HOMICIDAL.
[2019-11-17] MEDS ORDERED: MUPIROCIN OINT 2% 22 GM TUBE SCH (12:30)
[2019-11-17] MEDS: LEVOFLOXACIN (500MG) 500 MG TABLET PO SCH (13:54)
--- NOTE | 2019-11-17 14:15 | NUR ---
PAPER GUILLOTINE OPERATOR NOTES PATIENT DISCHARGED IN STABLE CONDITION. A/O X1. V/S TAKEN, STABLE AND RECORDED. NO IV ACCESS. TOOK PICTURES OF SKIN ISSUES AND FILED ON CHART. NAME ARM BAND REMOVED. ALL BELONGINGS CHECKED, RETURNED AND SIGNED. REPORT GIVEN TO IVON BULLOCK AT [facility]. DISCHARGE PAPERS SIGNED. AWARE. MED RECONCILIATION DONE. NO SI AND HI NOTED. PATIENT LEFT UNIT VIA GURNEY WITH 2 AMBULANCE STAFF, NO SIGNS OF DISTRESS NOTED. CHARGE NURSE AWARE OF DISCHARGED.
== END 2019-11-17 14:15 | DRG 885 ==
LOC: GPS 14:54
PROVIDERS: ADMIT Psychiatry & Neurology Psychiatry; ATTEND Hospitalist
DX: F29 Unspecified psychosis not due to a substance or known physiological condition (principal); F03.91 Unspecified dementia, unspecified severity, with behavioral disturbance; N39.0 Urinary tract infection, site not specified; F39 Unspecified mood [affective] disorder; I25.10 Atherosclerotic heart disease of native coronary artery without angina pectoris; N40.0 Benign prostatic hyperplasia without lower urinary tract symptoms; K21.9 Gastro-esophageal reflux disease without esophagitis; F20.9 Schizophrenia, unspecified; Z88.0 Allergy status to penicillin; I73.9 Peripheral vascular disease, unspecified; L98.8 Other specified disorders of the skin and subcutaneous tissue; B02.9 Zoster without complications; I25.2 Old myocardial infarction
CPT/HCPCS: 82962-TC; 87070-TC; 87081-TC; A4216; J1956; J2405